=== PATIENT | male | born 2000 | race African-American/Black ===

== ENCOUNTER 2018-05-21 08:46 | Emergency (ER) | payer OTHER | END 2018-05-21 11:46 | disposition home or self-care (01) | LOC: M ED 08:46 | DX: S82.392A Other fracture of lower end of left tibia, initial encounter for closed fracture (principal); S82.832A Other fracture of upper and lower end of left fibula, initial encounter for closed fracture; W01.0XXA Fall on same level from slipping, tripping and stumbling without subsequent striking against object, initial encounter; Y92.9 Unspecified place or not applicable; Y93.89 Activity, other specified; Y99.1 Military activity; Z72.0 Tobacco use | CPT/HCPCS: 73590 ==

== ENCOUNTER 2018-05-21 18:54 | Emergency (ER) | payer OTHER | END 2018-05-21 22:53 | disposition left against medical advice (07) | LOC: M ED 18:54 | DX: M25.571 Pain in right ankle and joints of right foot (principal); Z53.21 Procedure and treatment not carried out due to patient leaving prior to being seen by health care provider ==

== ENCOUNTER 2018-05-22 01:16 | Emergency (ER) | payer OTHER | END 2018-05-22 04:16 | disposition home or self-care (01) | LOC: M ED 01:16 | DX: S82.402D Unspecified fracture of shaft of left fibula, subsequent encounter for closed fracture with routine healing (principal); W01.0XXD Fall on same level from slipping, tripping and stumbling without subsequent striking against object, subsequent encounter; Y92.018 Other place in single-family (private) house as the place of occurrence of the external cause | CPT/HCPCS: 73590 ==